=== PATIENT | female | born 1940 | race Two or more races ===

== ENCOUNTER → 2019-09-16 | Emergency (ER) | payer OTHER, MEDICAID ==
[~2019-09-16] VITALS: Ht 162.6 cm; Wt 69.4 kg
[2019-09-16 15:09] VITALS: BP 171/52
== END | disposition home or self-care (01) ==
LOC: ER 12:22
DX: J02.9 Acute pharyngitis, unspecified (principal); Z20.828 Contact with and (suspected) exposure to other viral communicable diseases; I10 Essential (primary) hypertension
CPT/HCPCS: 71045; 99284; U0003

== ENCOUNTER → 2024-04-23 | Outpatient (CLI) | payer BC, MEDICAID ==
[~2024-04-23] VITALS: Ht 160 cm; Wt 61.2 kg
[2024-04-23] MEDS: REGADENOSON 0.4 MG/5 ML SYRG IV ONE ×2 (09:00)
--- NOTE | 2024-04-26 07:51 | DVHSR ---
APPROVED REPORT Exam: Nuclear Stress Test Indication: Atrial Fibrillation BMI: 0 Medical History Medical History: HTN, Atrial Fibrillation Allergies: NKDA Stress Test Details Stress Test: Pharmacologic stress testing performed using 0.4 mg of regadenoson per 5 mL given IV ov er 10 seconds. HR Resting HR: 86 bpmMax Heart Rate (APMHR): 135.630368 bpm Max HR Achieved: 116 bpmTarget HR (85% APMHR): 114.661976 bpm % of APMHR: 85.93 Recovery HR: 90 bpm BP Resting BP: 139/82 mmHg Recovery BP: 132/80 mmHg ECG Resting ECG: Atrial Fibrillation Clinical Reason for Termination: Completed protocol Nurse Comments Recieved pt. from [employer]. A/Ox4 on RA. Connected to weeder, VS stable. PIV flushes well. Reviewed POC. Pt. verbalized understanding of procedure including risks and side ef fects, agrees for stress testing. Lexiscan stress test performed per protocol. [employer] administered Cardiolite. Pt. tolerated well . Pt. stable, no change on exam. VS returned to baseline. Transferred to [employer] via wheelchair w/ te ch. Stress ECG Conclusion ecg shows afib normal perfusion scan no ischemia lvef 82% NM EXAM: Myocardial Perfusion REST/STRESS Imaging Protocol: Rest Tc-99m/Stress Tc-99m 1 day Resting Data Rest SPECT myocardial perfusion imaging was performed in supine position 60 minutes following the int ravenous injection of 11.4 mCi of Tc-99m Sestamibi. Time of rest injection: 738 Date: 04/23/2024 Time of rest imagin Date: 04/23/2024 Administration Route: IV Administration Site: Right Hand Pharmacologic Stress Pharmacologic stress test was performed by injecting Regadenoson 0.4 mg IV push followed by the intra venous injection of 33 mCi of Tc-99m Sestamibi. Time of stress injection: 0900 Date: 04/23/2024 Time of stress imagin Date: 04/23/2024 Administration Route: IV Administration Site: Right Hand The images were gated to evaluate regional wall motion and calculate left ventricular ejection fracti on. Stress only was performed in the Supine position. Nuclear Conclusion Nuclear Findings: negative for ischemia ecg shows afib normal perfusion scan no ischemia lvef 82%
== END | disposition home or self-care (01) ==
LOC: XYW 07:13
PROVIDERS: ATTEND Specialist
DX: I48.91 Unspecified atrial fibrillation (principal); I10 Essential (primary) hypertension; R73.03 Prediabetes
CPT/HCPCS: 93017; J2785; 78452